=== PATIENT | male | born 1930 | race Caucasian/White ===

== ENCOUNTER → 2018-05-11 | Outpatient (CLI) | payer OTHER | LOC: FIMAGING 12:03 | PROVIDERS: ATTEND Orthopaedic Surgery | DX: Z01.818 Encounter for other preprocedural examination (principal); M17.11 Unilateral primary osteoarthritis, right knee; M16.11 Unilateral primary osteoarthritis, right hip; K40.90 Unilateral inguinal hernia, without obstruction or gangrene, not specified as recurrent; K57.30 Diverticulosis of large intestine without perforation or abscess without bleeding ==

== ENCOUNTER 2018-05-21 08:39 | Observation (INO) | payer OTHER ==
--- NOTE | 2018-05-21 06:08 | PDHPUP ---
History & Physical Update H&P update statement: This history and physical update is based on an assessment of the patient which was completed after admission or registration (within 24 hours), but prior to the surgery/procedure. H&P update: H&P reviewed & patient examined, no change in patient's condition since H&P completed
[~2018-05-21 08:39] MED LIST: ROPIVACAINE 0.2% 80 MG, EPINEPHrine 0.2 MG, KETOROLAC TROMETHAMINE 30 MG in SYRINGE 0 ML IU ONE; TRANEXAMIC ACID 3,000 MG in NS (SYRINGE) 50 ML IRR ONE
[2018-05-21] MEDS ORDERED: DEXAMETHASONE 4 MG/ML VIAL IVP ONE (08:49)
[2018-05-21] MEDS ORDERED: FAMOTIDINE 20 MG TAB PO ONE (08:49)
[2018-05-21] MEDS ORDERED: ACETAMINOPHEN 325 MG TAB PO ONE (08:49)
[2018-05-21] MEDS ORDERED: ceFAZolin 2 GM/DEXTROSE 100 ML IV ONE (08:49)
[2018-05-21] MEDS ORDERED: LR 1,000 ML IV ONE (08:51)
[2018-05-21] MEDS ORDERED: CEFAZOLIN 2 GM/DEXTROSE/100 ML BAG IV ONE (09:26)
[2018-05-21] MEDS ORDERED: TRANEXAMIC ACID 3,000 MG/50 ML BAG IRR ONE (09:36)
[2018-05-21] MEDS ORDERED: VANCOMYCIN 1 GM VIAL ONE (09:36)
[2018-05-21] MEDS ORDERED: PROPOFOL/EMULSION 500 MG/50 ML BOTTLE IV ONE (10:05)
--- NOTE | 2018-05-21 10:53 | PDANEPAE ---
ANE History of Present Illness right knee pain ANE Past Medical History - Cardiovascular History Hx Hypertension: No Hx Arrhythmias: Yes Hx Chest Pain: No Hx Coronary Artery / Peripheral Vascular Disease: No Hx CHF / Valvular Disease: No Hx Palpitations: No Cardiovascular History Comment: bradycardia s/p pacemaker - Pulmonary History Hx COPD: No Hx Asthma/Reactive Airway Disease: No Hx Recent Upper Respiratory Infection: No Hx Oxygen in Use at Home: No Hx Sleep Apnea: No Sleep Apnea Screening Result - Last Documented: Negative - Neurologic History Hx Cerebrovascular Accident: No Hx Seizures: No Hx Dementia: No - Endocrine History Hx Diabetes: No Hypothyroid: No Hyperthyroid: No Obesity: no - Renal History Hx Renal Disorders: No - Liver History Hx Hepatic Disorders: No - Neurological & Psychiatric Hx Hx Neurological and Psychiatric Disorders: No - Cancer History Hx Cancer: Yes Cancer History Comment: protate CA - Congenital Disorder History Hx Congenital Disorders: No - GI History GERD: no Hx Gastrointestinal Disorders: Yes Gastrointestinal History Comment: hietal hernia,reflux - Other Health History Other Health History: rhinitis. 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[employer] ANE Patient History - Allergies Allergies/Adverse Reactions: No Known Allergies Allergy (Verified 05/13/18 11:40) - Home Medications Home medications: home medication list seen and reviewed Home Medications: Ascorbic Acid [Vitamin C 500 mg (*)] 500 mg PO DAILY 05/13/18 [Last Taken 2 Weeks Ago ~05/07/18] Aspirin [Aspirin 81mg (*)] 81 mg PO DAILY 05/13/18 [Last Taken 2 Weeks Ago ~] Bimatoprost 0.01% [Lumigan 0.01% (*)] 1 drops EACHEYE HS 05/13/18 [Last Taken ] Cholecalciferol Vit D3 [Vitamin D3 (*)] 1,000 units PO DAILY 05/13/18 [Last Taken 2 Weeks Ago ~05/07/18] Herbals/Supplements -Info Only 1 ea PO DAILY 05/13/18 [Last Taken 05/11/18] Loratadine [Claritin] 10 mg PO DAILY 05/13/18 [Last Taken 05/20/18] Multivitamins [Multivitamin (*)] 1 each PO DAILY 05/13/18 [Last Taken 2 Weeks Ago ~05/07/18] [place]-3 Fatty Acids [Fish Oil 1000 mg (*)] 1,000 mg PO DAILY 05/13/18 [Last Taken 2 Weeks Ago ~05/07/18] Timolol 0.5% [TIMOPTIC 0.5% (*)] 1 drops EACHEYE DAILY 05/13/18 [Last Taken 12/30 06:00] - NPO status NPO Status: no food or drink >8 hours NPO Since - Liquids (Date): 05/21/18 NPO Since - Liquids (Time): 06:00 NPO Since - Solids (Date): 05/20/18 NPO Since - Solids (Time): 17:00 - Anes Hx Anes Hx: no prior problems - Smoking Hx Smoking Status: Never smoked - Family Anes Hx Family Hx Anesthesia Complications: none ANE Labs/Vital Signs - Vital Signs Blood Pressure: 124/81 Heart Rate: 78 Respiratory Rate: 18 O2 Sat (%): 98 Height: 182.88 cm Weight: 72.575 kg ANE Physical Exam - Airway Neck exam: FROM Mallampati Score: Class 2 Mouth exam: normal dental/mouth exam - Pulmonary Pulmonary: no respiratory distress - Cardiovascular Cardiovascular: regular rate and rhythym - ASA Status ASA Status: II ANE Anesthesia Plan Anesthesia Plan: spinal Regional Anesthesia: single shot NB, adductor canal FNB
[2018-05-21] MEDS ORDERED: METOCLOPRAMIDE 10 MG/2 ML VIAL IVP PRN ×2 (12:17→12:38)
[2018-05-21] MEDS ORDERED: ACETAMINOPHEN 500 MG TAB PO PRN (12:17)
[2018-05-21] MEDS ORDERED: HYDROmorphONE/DILAUDID 2 MG/ML INJ IVP PRN (12:17)
[2018-05-21] MEDS ORDERED: MEPERIDINE 25 MG/0.5 ML AMP IVP PRN (12:17)
[2018-05-21] MEDS ORDERED: PROMETHAZINE HCL 25 MG/ML INJ IVP PRN ×2 (12:17→12:38)
[2018-05-21] MEDS ORDERED: ONDANSETRON 4 MG/2 ML VIAL IVP PRN ×2 (12:17→12:38)
[2018-05-21] MEDS ORDERED: fentaNYL 100 MCG/2 ML INJ IVP PRN (12:17)
[2018-05-21] MEDS ORDERED: DEXAMETHASONE 4 MG/ML VIAL IVP PRN (12:17)
[2018-05-21] MEDS ORDERED: ALBUTEROL 3 ML DEYVIAL IH PRN (12:17)
[2018-05-21] MEDS ORDERED: LABETALOL HCL 20 MG/4 ML INJ IVP PRN (12:17)
[2018-05-21] MEDS ORDERED: oxyCODONE IR 5 MG TAB PO PRN ×2 (12:17→12:38)
[2018-05-21] MEDS ORDERED: DIAZEPAM 5 MG/ML 1 ML SYR IVP PRN (12:17)
[2018-05-21] MEDS ORDERED: LR 500 ML IV PRN (12:17)
[2018-05-21] MEDS ORDERED: PHENYLEPHRINE HCL 100 MCG/ML SYR IVP PRN (12:17)
[2018-05-21] MEDS ORDERED: NALOXONE HCL 0.4 MG/ML INJ IVP PRN (12:17)
[2018-05-21] MEDS ORDERED: ROPIVACAINE HCL 150 MG/30 ML INJ ONE (12:35)
[2018-05-21] MEDS ORDERED: DIPHENOXYLATE/ATROPINE LOMOTIL 1 TAB PO PRN (12:38)
[2018-05-21] MEDS ORDERED: CYCLOBENZAPRINE 10 MG TAB PO PRN (12:38)
[2018-05-21] MEDS ORDERED: TEMAZEPAM 15 MG CAP PO PRN (12:38)
[2018-05-21] MEDS ORDERED: diphenhydrAMINE 25 MG CAP PO PRN (12:38)
[2018-05-21] MEDS ORDERED: ONDANSETRON DISINTEGRATING 4 MG TAB PO PRN (12:38)
[2018-05-21] MEDS ORDERED: LACTULOSE 20 GM/30 ML UDCUP PO PRN (12:38)
[2018-05-21] MEDS ORDERED: MAGNESIUM HYDROXIDE 30 ML UDCUP PO PRN (12:38)
[2018-05-21] MEDS ORDERED: POLYETHYLENE GLYCOL 3350 17 GM PKT PO PRN (12:38)
[2018-05-21] MEDS ORDERED: BISACODYL 10 MG SUPP PR PRN (12:38)
[2018-05-21] MEDS ORDERED: PROMETHAZINE HCL 25 MG SUPPR PR PRN (12:38)
--- NOTE | 2018-05-21 12:38 | POSTOPPROG ---
Post Op Note Date of Operation: 05/21/18 Surgeon: Merary Rodriguez Perfusionist: neville rodriguez PA-C Anesthesiologist: dr. nicholson Anesthesia: Spinal, Other (Specify) (adductor canal block) Pre-op Diagnosis: right knee OA Post-op Diagnosis: same Indication: right knee pain Procedure: R med MPL Findings: severe medial knee OA Inf/Abcess present in the surg proc area at time of surgery?: No EBL: 50-100
[2018-05-21] MEDS ORDERED: LR 1,000 ML IV SCH (13:00)
--- NOTE | 2018-05-21 14:04 | POSTANESTH ---
Post Anesthetic Evaluation Cardiovascular Status: Normal, Stable Respiratory Status: Normal, Stable Level of Consciousness/Mental Status: Can Participate in Eval Pain Control: Adequate, Prn Tx Ordered Nausea/Vomiting Control: Adequate, Prn Tx Ordered Complications Possibly Related to Anesthesia: None Noted
[2018-05-21] MEDS: ACETAMINOPHEN 325 MG TAB PO SCH ×2 (17:30→23:59)
[2018-05-21] MEDS: ceFAZolin 2 GM/DEXTROSE 100 ML IV SCH (18:30)
[2018-05-21] MEDS ORDERED: BIMATOPROST 0.01% EACHEYE SCH (21:00)
[2018-05-21] MEDS: FAMOTIDINE 20 MG TAB PO SCH (21:39)
[2018-05-21] MEDS: ASPIRIN 81 MG CHEWABLE TAB PO SCH (21:39)
[2018-05-21] MEDS: SENNOSIDES/DOCUSATE SODIUM TAB PO SCH (21:39)
[2018-05-22] MEDS: ceFAZolin 2 GM/DEXTROSE 100 ML IV SCH (04:03)
[2018-05-22] MEDS: ACETAMINOPHEN 325 MG TAB PO SCH (06:06)
[2018-05-22] MEDS: SENNOSIDES/DOCUSATE SODIUM TAB PO SCH (07:39)
[2018-05-22] MEDS: FAMOTIDINE 20 MG TAB PO SCH (07:40)
[2018-05-22] MEDS: ASPIRIN 81 MG CHEWABLE TAB PO SCH (07:40)
[2018-05-22 07:42] VITALS: BP 96/62
[2018-05-22] MEDS ORDERED: TIMOLOL 0.5% EACHEYE SCH (09:00)
--- NOTE | 2018-05-22 10:05 | SOAPPROG ---
SOAP Progress Note Assessment/Plan: Assessment: Patient is doing well POD 1 s/p R medial PKA Pain management: pain is well controlled on oral pain meds. VTE ppx: recommend aspirin 81 mg twice daily for 4 weeks, cont CARMEN and SCDs Anemia: level is expected initially postop. Asymptomatic. Continue to monitor D/c planning:patient has done much better than anticipated. Patient is stable, BP stable, pain well controlled and patient is eager for discharge to home. October d/c to home today pending release from PT Plan: 05/22/18 10:04 Subjective: Patient is doing well, denies SOB, chest pain and N/V Objective: Vital Signs Temp Pulse Resp BP Pulse Ox 37.3 C 64 18 96/62 L 94 05/22/18 07:40 05/22/18 07:40 05/22/18 07:40 05/22/18 07:40 05/22/18 04:00 Laboratory Results 05/22/18 04:52 05/22/18 04:52 05/21/18 05/22/18 05/23/18 05:59 05:59 05:59 Intake Total 3449 500 Output Total 730 Balance 2719 500 RLE: incision dressing is clean and dry, NVi, +pf/df ICD10 Worksheet Patient Problems: Problems Problem Status Onset Primary localized osteoarthritis of right knee Acute
--- NOTE | 2018-05-22 11:58 | GDS ---
ADMISSION DIAGNOSIS: Right knee osteoarthritis. DISCHARGE DIAGNOSIS: Right knee osteoarthritis. PROCEDURE: Right partial knee arthroplasty in medial compartment, robotic assisted. VTE PROPHYLAXIS: Recommend aspirin 81 mg twice daily for 4 weeks. BRIEF DESCRIPTION OF HOSPITAL STAY: Patient was admitted for an elective joint arthroplasty. The pa jojo tolerated the procedure well and has passed physical therapy. The patient was given appropriat e antibiotic prophylaxis and venous thromboembolism prophylaxis. The patient's pain was well control led on oral pain medication, patient was holding down food, and had urinated. Decision was made to d ischarge the patient. The patient was given post-operative prescriptions pre-operatively. PLAN: Follow up as scheduled in Dr. Yarbrough's office in 3 weeks. /[id number]/MODL
--- NOTE | 2018-05-24 09:29 | GOP ---
DATE OF OPERATION: 05/21/2018 SURGEON: Citlali Yarbrough MD COMMISSARY AGENT: NESTOR Paredes. ANESTHESIA: Spinal. PREOPERATIVE DIAGNOSIS: Right knee osteoarthrosis. POSTOPERATIVE DIAGNOSIS: Right knee osteoarthrosis. PROCEDURE PERFORMED: Right medial partial knee replacement_. FINDINGS: severe medial compartment osteoarthritis. ESTIMATED BLOOD LOSS: 30 cc. INDICATIONS: This is an 87-year-old male with progressive pain of the right knee unresponsive to conservative care. Risks and benefits of surgical intervention were explained in detail. DESCRIPTION OF PROCEDURE: The patient was brought to the operating room and placed on the table in supine position. Spinal anesthesia was induced without difficulty. A pneumatic tourniquet was applied about the right proximal thigh and the leg was prepped and draped in sterile fashion. Attention was turned first to the distal aspect of the 6 femur. At 3 cm proximal to the lateral rise of the femur, 2 percutaneous half pins were placed for fixation of the femoral array. In a similar fashion, 2 pins were placed anterolateral on the tibia for fixation of the tibial array. External land marking and registration of the hip center was performed without difficulty. After exsanguination by elevation, the tourniquet was inflated to 250 mmHg. Incision was made from the tibial tuberosity to the superior pole of the patella. Dissection was carried out through the subcutaneous tissue to the deep fascia using [employer] electrocautery for hemostasis. Medial parapatellar arthrotomy was carried out to the superior pole of the patella. The medial collateral ligament was elevated and the infrapatellar fat pad was resected. Internal femoral and tibial registration was carried out without difficulty and the femoral and tibial checkpoints were placed and verified for accuracy. Attention was turned to the femur. The foot print for the size 6 femoral component was cut with the 6 mm bur using the [employer] robotic system and verified for accuracy against the CT based plan. The hole was cut for the femoral post. In a similar fashion, the 6 mm bur was used to cut the foot print for the size 5 tibial component using the [employer] system and verified for accuracy against the CT based plan. Attention was turned to the posterior aspect of the knee and remnants of the medial meniscus were excised. The posterior capsule was injected with ropivacaine, epinephrine and Toradol. Trial reduction was carried out and there was excellent range of motion, alignment and stability using the size 6 femoral component and the size 5 tibial component. All trials were then removed. The joint was thoroughly irrigated and carefully dried. One package of cement and 1 gram of vancomycin were mixed in the vacuum mixer and placed on the fixation surfaces of all components. The components were implanted and all excess cement was thoroughly removed. Implant placement was verified against the CT view plan and found to be excellent. The tourniquet was deflated and all bleeders were coagulated. The wound was thoroughly irrigated and closed using interrupted sutures of 2-0 Vicryl for the joint capsule. The subcu was closed with 3-0 Vicryl and the skin with 4-0 Monocryl. Dermabond and Steri-Strips were applied, followed by a compressive dressing. The patient was then moved from the operating room to the recovery room in good condition, having tolerated the procedure well. CASE CLASSIFICATION: Clean. /[id number]/MODL MTDD
== END 2018-05-22 10:25 | disposition home or self-care (01) ==
LOC: F3N 08:39 → INTOOBSV 08:39 → F3N 14:54
PROVIDERS: ADMIT Orthopaedic Surgery; ATTEND Orthopaedic Surgery
DX: M17.11 Unilateral primary osteoarthritis, right knee (principal); K21.9 Gastro-esophageal reflux disease without esophagitis; K44.9 Diaphragmatic hernia without obstruction or gangrene; R00.1 Bradycardia, unspecified; Z85.46 Personal history of malignant neoplasm of prostate; Z95.0 Presence of cardiac pacemaker
CPT/HCPCS: 27446; 73560; 97116; 97161; C1713; C1776; G8978; G8979; G8980; J0171; J0690; J1100; J1885; J2704; J2795; J3370